=== PATIENT | female | born 1995 | race Caucasian/White ===

== ENCOUNTER 2017-01-06 12:38 | Emergency (ER) | payer OTHER ==
[2017-01-06] MEDS ORDERED: ACETAMINOPHEN 325 MG TABLET PO ONE (12:53)
--- NOTE | 2017-01-06 12:53 | ER Document Report ---
ED Medical Screen (RME) - General Stated Complaint: WEAKNESS,FEVER,COUGH,HEADACHE Notes: 21 yo female c/o fever, cough, headache and dizziness. acute onset of symptoms last night. no flu shot Physical Exam - Vital signs Vitals: Temp Pulse Resp BP Pulse Ox 100.0 F 132 H 18 134/71 H 100 01/06/17 12:43 01/06/17 12:43 01/06/17 12:43 01/06/17 12:43 01/06/17 12:43 Course - Vital Signs Vital signs: Temp Pulse Resp BP Pulse Ox 100.0 F 132 H 18 134/71 H 100 01/06/17 12:43 01/06/17 12:43 01/06/17 12:43 01/06/17 12:43 01/06/17 12:43
--- NOTE | 2017-01-06 14:27 | ER Document Report ---
ED Flu Like - General Chief Complaint: Cough Stated Complaint: WEAKNESS,FEVER,COUGH,HEADACHE Notes: The patient is a 21-year-old female, past medical history asthma, presents with 1 day of myalgias, coughing, subjective fevers and shortness of breath. She did not get her flu shot this year. She is drinking normally. Denies recent travel, sick contacts, nausea, vomiting, abdominal pain, diarrhea, urinary symptoms, headache, neck stiffness or neuro symptoms. TRAVEL OUTSIDE OF THE [place] IN LAST 30 DAYS: No - Related Data Allergies/Adverse Reactions: Penicillins Allergy (Verified 01/06/17 12:52) Past Medical History - General Information source: Patient - Social History Smoking Status: Never Smoker Chew tobacco use (# tins/day): No Frequency of alcohol use: None Drug Abuse: None Family History: Reviewed & Not Pertinent Patient has suicidal ideation: No Patient has homicidal ideation: No Renal/ Medical History: Denies: Hx Peritoneal Dialysis Review of Systems - Review of Systems Notes: REVIEW OF SYSTEMS: CONSTITUTIONAL: +fevers, +chills EENT: -eye pain, -difficulty swallowing, +nasal congestion CARDIOVASCULAR:-chest pain, -syncope. RESPIRATORY: +cough, -SOB GASTROINTESTINAL: -abdominal pain, - nausea, -vomiting, -diarrhea GENITOURINARY: -dysuria, -hematuria MUSCULOSKELETAL: -back pain, -neck pain SKIN: -rash or skin lesions. HEMATOLOGIC: -easy bruising or bleeding. LYMPHATIC: -swollen, enlarged glands. NEUROLOGICAL: -altered mental status or loss of consciousness, -headache, - neurologic symptoms PSYCHIATRIC: -anxiety, -depression. ALL OTHER SYSTEMS REVIEWED AND NEGATIVE. Physical Exam - Vital signs Vitals: Temp Pulse Resp BP Pulse Ox 100.0 F 132 H 18 134/71 H 100 01/06/17 12:43 01/06/17 12:43 01/06/17 12:43 01/06/17 12:43 01/06/17 12:43 - Notes Notes: PHYSICAL EXAMINATION: GENERAL: Well-appearing, well-nourished and in no acute distress. HEAD: Atraumatic, normocephalic. EYES: Pupils equal round and reactive to light, extraocular movements intact, sclera anicteric, conjunctiva are normal. ENT: nares patent, oropharynx clear without exudates. Moist mucous membranes. NECK: Normal range of motion, supple without lymphadenopathy LUNGS: Crackles in RLL. No respiratory distress. HEART: Tachycardic. Regular rhythm without murmurs ABDOMEN: Soft, nontender, normoactive bowel sounds. No guarding, no rebound. No masses appreciated. EXTREMITIES: Normal range of motion, no pitting or edema. No cyanosis. NEUROLOGICAL: Cranial nerves grossly intact. Normal speech, normal gait. Normal sensory, motor, and reflex exams. PSYCH: Normal mood, normal affect. SKIN: Warm, Dry, normal turgor, no rashes or lesions noted. Course - Re-evaluation Re-evalutation: Chest x-ray obtained due to tachycardia and crackles on exam. Chest x-ray does not show any evidence of pneumonia. Patient's heart rate decreased down to 97 prior to discharge. Instructed patient about symptomatic treatment for her viral illness. Offered patient Tamiflu after explaining the risks and benefits , but she defers at this time. Will discharge home with return precautions. - Vital Signs Vital signs: Temp Pulse Resp BP Pulse Ox 98.4 F 97 18 112/61 97 01/06/17 16:10 01/06/17 16:19 01/06/17 12:43 01/06/17 16:10 01/06/17 16:10 Discharge - Discharge Clinical Impression: Viral illness Condition: Good Disposition: HOME, SELF-CARE Additional Instructions: INFLUENZA: The physician feels that you have influenza -- the "flu". Influenza is an infection caused by a virus. Symptoms include generalized aching, fever, headache, dry cough, and fatigue. Some patients with the flu also have nausea, vomiting, and diarrhea. The fever and aches usually last two to four days, with the cough persisting another one to two weeks. Treatment of the flu, for the most part, is simply treatment of symptoms. Rest, drink plenty of fluids, and use acetaminophen for fever and aches. Do not take aspirin. There is an anti-viral medication, called Tamiflu, which may help in "type A" flu, but it's not helpful in every case of flu, and only works if started within the first 24 - 48 hours of the start of symptoms. The physician will determine whether this medication can help you. To prevent spread of the virus, use good handwashing. Shared toys should be cleaned with disinfectant. Clean the toilets, sinks, and counter surfaces in bathrooms. Launder clothing in hot water. What are conditions that should receive medical attention? The development of difficulty breathing. Lip color changes to blue or purple. Persistent vomiting and unable to keep liquids down with signs of dehydration such as: dizziness when standing, unable to urinate, or if child/infant is crying no tears are noticed. Is less responsive than normal or becomes confused. How do I decrease the spread of flu in my home? Taking care of the sick patient at home: Keep the sick person in a room separate from the common areas of the house. Keep the "sickroom" door closed. If the person with the flu needs to leave the home, they should cover their nose/mouth when coughing or sneezing and wear a disposable (surgical) mask if available. These masks may be available at your local pharmacy, medical supply and hardware store. If the sick person is in common areas of the house, have them wear a surgical mask. If possible, have the sick person use a separate bathroom that should be cleaned daily with a household disinfectant. If you are the caregiver: Avoid being face to face with the sick adult person as much as possible. Try to stay at least 6 feet away and wear a disposable surgical mask when possible. When holding small children who are sick, place their chin on your shoulder so that they will not cough in your face. Wash your hands after you touch the sick person or handle their tissues and laundry. Wear a mask if you leave home, as you may be infected from taking care of someone and not know it yet. Watch yourself and others in the home for flu symptoms and contact your doctor if symptoms occur. NOTE: Antiviral medication used to reduce the symptoms of the flu works only if taken within 48 hours, and best within 24 hours of symptom onset. Household Cleaning, laundry and waste disposal: Tissues and other disposable items used by the sick person should be thrown away in the trash. Wash your hands after touching these used items. No special waste disposal is required. Keep surfaces (especially bedside tables, bathroom surfaces, and toys for children) clean by wiping them down with a safe household disinfectant according to the directions on the product label. Per Center for Disease Control advice, most people will not receive testing to confirm flu. Also based on the person's health history and onset of symptoms, not all patients will receive prescriptions for antiviral medications. If you have questions related to this, please ask your healthcare provider. For more information, you can call the Centers for Disease Control and Prevention (CDC) Hotline at 9-733-DZMAthersys This line is available in [place] and [place], 24 hours a day, 7 days a week. Or www.[employer] or www.cdc.gov Flu-Like Illness Home Instructions: The influenza virus infection can cause a wide rage of symptoms, including: Fever, cough, sore throat, body aches, headaches, chills, fatigue, with some patients reporting diarrhea and vomiting Like seasonal influenza A, H1N1 ("swine flu")in humans can vary in severity from mild to severe Severe illness with pneumonia, respiratory failure and even is possible Certain groups might be more likely to develop a severe illness from H1N1 infection. Sometimes bacterial infections may occur at the same time as or after infection with influenza viruses and lead to pneumonias, ear infections, or sinus infections. How Flu Spreads The main way that influenza viruses spread is through respiratory droplets of coughs and sneezes. This can happen when someone with the infection coughs or sneezes and the particles fly through the air and land on other people and surfaces. If the person covers their mouth and nose with their hand but does not wash their hands immediately, then these germs are passed onto the next object that they touch. People with Influenza A or suspected H1N1 (swine flu) who are cared for at home should: Check with their doctor about any special care that they might need if they are or have a health condition such as diabetes, heart disease, asthma or emphysema. Also, limit caregiver to one (if possible). women or those with chronic health conditions should not take care of the flu patient unless necessary. Check with their doctor about whether or not medications are needed that may lessen the symptoms of the flu. Stay at home until 24 hours fever free without the use of fever reducing medication. Get plenty of rest and avoid other healthy people in your home. Drink plenty of clear liquids to keep from getting dehydrated. Take medications like Tylenol (Acetaminophen), Advil/Motrin/Nuprin ( Ibuprofen) or Aleve (Naproxen) for fevers and aches. All children under the age of 18 years of age should not take aspirin or products containing aspirin (e.g. Pepto Bismol), as this can cause a rare serious illness called Sarah Syndrome. Over the counter medications for flu and colds may help, but it is very important to follow the package directions. Remember that the medicine may help the symptoms, but it will not help prevent others from getting sick if they are around you. Cover coughs and sneezes using your bent arm. Clean hands with soap and water or an alcohol-based hand rub often, especially after using tissues to cough or sneeze. Encourage hand washing frequently for all people living in the home! The sick person should not have visitors other than caregivers. Encourage concerned loved ones to call instead of visit. Avoid close contact with others-do not go to work or school while sick. USE OF ACETAMINOPHEN (Tylenol): Acetaminophen may be taken for pain relief or fever control. It's much safer than aspirin, offering a wider range of "safe" dosages. It is safe during . Some brand names are Tylenol, Panadol, Datril, Anacin 3, Tempra, and Liquiprin. Acetaminophen can be repeated every four hours. The following are maximum recommended dosages: WEIGHT Dose Drops Elixir Chewable( 80mg) (LBS.) drprs=droppers tsp=teaspoon 6 40 mg 0.4 ml (1/2) 6-11 80 mg 0.8 ml (full) tsp 1 tab 12-16 120 mg 1 1/2 drprs 3/4 tsp 1 1/2 tabs 17-23 160 mg 2 drprs 1 tsp 2 tabs 24-30 240 mg 3 drprs 1 1/2 tsp 3 tabs 30-35 320 mg 2 tsp 4 tabs 36-41 360 mg 2 1/4 tsp 4 1/2 tabs 42-47 400 mg 2 1/2 tsp 5 tabs 48-53 480 mg 3 tsp 6 tabs 54-59 520 mg 3 1/4 tsp 6 1/2 tabs 60-64 560 mg 3 1/2 tsp 7 tabs 65-70 600 mg 3 3/4 tsp 7 1/2 tabs 71-76 640 mg 4 tsp 8 tabs 77-82 720 mg 4 1/2 tsp 9 tabs 83-88 800 mg 5 tsp 10 tabs >89 pounds or adults 650 mg to 900 mg Acetaminophen can be repeated every four hours. Maximum dose not to exceed 4000 mg a day. These maximum recommended dosages are slightly higher than the dosages written on the product container, but these dosages are very safe and below the toxic dosage for acetaminophen. ORAL NARCOTIC MEDICATION: You have been given a prescription for pain control. This medication is a narcotic. It's best taken with food, as nausea can result if taken on an empty stomach. Don't operate machinery or drive within six hours of taking this medication. Do not combine this medicine with alcohol, or with any medication which can cause sedation (such as cold tablets or sleeping pills) unless you get permission from the physician. Narcotics tend to cause constipation. If possible, drink plenty of fluids and eat a diet high in fiber and fruits. Please be aware that prescription narcotics also have the potential for abuse. People become addicted to these medications because of the general sense of wellbeing that they induce. This feeling along with a significant reduction in tension, anxiety, and aggression provides a stimulating seductive quality to these drugs. Once your pain is under control, we encourage you to discard your unused narcotics. FOLLOW-UP CARE: If you have been referred to a physician for follow-up care, call the physician s office for an appointment as you were instructed or within the next two days. If you experience worsening or a significant change in your symptoms, notify the physician immediately or return to the Emergency Department at any time for re-evaluation.
[2017-01-06 17:41] VITALS: BP 118/72
== END 2017-01-06 17:05 | disposition home or self-care (01) ==
LOC: ER 12:38
DX: R05 Cough (principal); B34.9 Viral infection, unspecified; R53.1 Weakness; R50.9 Fever, unspecified; R51 Headache; Z88.0 Allergy status to penicillin
CPT/HCPCS: 71020; 99283